=== PATIENT | male | born 1955 | race Caucasian/White ===

== ENCOUNTER 2020-11-02 15:39 | Inpatient (IN) | payer OTHER ==
[~2020-11-02] VITALS: Ht 180.3 cm; Wt 139.1 kg
[2020-11-02] MEDS ORDERED: ONDANSETRON HCL INJ 2MG/ML 2ML 2 MG/ML VIAL IV PRN (16:15)
[2020-11-02 16:43] LABS: BASOPHILS # (AUTO) 0.1 (0.0-0.1); BASOPHILS % 0.5 % (0.0-1.0); EOSINOPHILS # (AUTO) 0.3 (0.0-0.4); EOSINOPHILS % 3.4 % (0.0-6.0); HEMATOCRIT 46.2 % (38.2-49.6); HEMOGLOBIN 14.7 g/dL (14.0-18.0); LYMPHOCYTES # (AUTO) 1.7 (1.0-3.2); LYMPHOCYTES % 17.5 % (18.0-39.1); MEAN CORPUSCULAR HEMOGLOBIN 26.7 pg (28-32); MEAN CORPUSCULAR HGB CONC 31.8 g/dL (31-35); MONOCYTES # (AUTO) 0.6 (0.2-0.8); MONOCYTES % 5.5 % (4.4-11.3); NEUTROPHILS # (AUTO) 7.3 (2.1-6.9); NEUTROPHILS % 72.9 % (38.7-80.0); PLATELET COUNT 333 x10e3/uL (140-360); RED CELL DISTRIBUTION WIDTH 13.5 % (11.7-14.4)
[2020-11-02 17:01] LABS: ALANINE AMINOTRANSFERASE 33 IU/L (0-55); ALBUMIN 3.9 g/dL (3.5-5.0); ALBUMIN/GLOBULIN RATIO 1.1 (0.8-2.0); ALKALINE PHOSPHATASE 73 IU/L (40-150); ANION GAP 14.7 mmol/L (8-16); BLOOD UREA NITROGEN 15 mg/dL (7-26); BUN/CREATININE RATIO 13 (6-25); CALCIUM 9.4 mg/dL (8.4-10.2); CARBON DIOXIDE 26 mmol/L (22-29); CHLORIDE 100 mmol/L (98-107); CREATININE, SERUM 1.13 mg/dL (0.72-1.25); EST GLOMERULAR FILTRATION RATE > 60 ML/MIN (60-); GLUCOSE 201 mg/dL (74-118); POTASSIUM 3.7 mmol/L (3.5-5.1); SODIUM 137 mmol/L (136-145)
[2020-11-02] MEDS ORDERED: LOSARTAN-HCTZ1 EACH PO (17:10)
[2020-11-02] MEDS ORDERED: CYMBALTA30 MG PO (17:10)
[2020-11-02] MEDS ORDERED: MOBIC15 MG PO (17:10)
[2020-11-02] MEDS ORDERED: OMEPRAZOLE40 MG PO (17:10)
[2020-11-02] MEDS ORDERED: ZETIA10 MG PO (17:10)
[2020-11-02] MEDS ORDERED: LEVOTHYROXINE50 MCG PO (17:10)
[2020-11-02] MEDS ORDERED: XIGDUO XR 5 MG1 EAC1 PO (17:10)
[2020-11-02] MEDS ORDERED: FLOMAX0.4 MG PO (17:10)
[2020-11-02] MEDS ORDERED: GABAPENTIN600 MG PO (17:10)
[2020-11-02] MEDS: LEVOFLOXACIN 750MG/D5W 150ML 150 ML IV SCH (17:13)
[2020-11-02] MEDS ORDERED: PIPER-TAZ 3.375 GM 50 ML IV SCH (18:00)
[2020-11-02 20:07] VITALS: BP 106/77
[2020-11-02 20:29] VITALS: BP 106/77
[2020-11-02] MEDS: VANCOMYCIN 1GM/NS 250 ML 250 ML IV SCH (21:55)
[2020-11-02] MEDS: TAMSULOSIN HCL 0.4 MG CAP PO SCH (22:00)
[2020-11-02] MEDS: GABAPENTIN 300 MG CAP PO SCH (22:00)
[2020-11-02] MEDS: EZETIMIBE 10 MG TAB PO SCH (22:00)
[2020-11-02] MEDS ORDERED: SODIUM CHLORIDE 0.9% 250ML 250 ML ONE (22:10)
[2020-11-03] VITALS (8 sets, daily range): BP systolic 103–126; BP diastolic 61–74
[2020-11-03] MEDS ORDERED: POLYETHYLENE GLYCOL 3350 17 GM PACK PO PRN (00:15)
[2020-11-03] MEDS ORDERED: SIMETHICONE 80 MG CHEW PO PRN (00:15)
[2020-11-03] MEDS ORDERED: ONDANSETRON HCL INJ 2MG/ML 2ML 2 MG/ML VIAL IV PRN (00:15)
[2020-11-03] MEDS ORDERED: MELATONIN 5 MG TABLET PO PRN (00:15)
[2020-11-03] MEDS ORDERED: POTASSIUM CHLORIDE 20 MEQ TAB CR PO PRN (00:15)
[2020-11-03] MEDS ORDERED: HYDRALAZINE HCL 20 MG/ML VIAL IV PRN (00:15)
[2020-11-03] MEDS ORDERED: DOCUSATE SODIUM 100 MG CAP PO PRN (00:15)
[2020-11-03] MEDS ORDERED: DEXTROSE 50% SYRINGE 50 ML IV PRN (00:15)
[2020-11-03] MEDS ORDERED: DIPHENHYDRAMINE HCL 25 MG CAP PO PRN (00:15)
[2020-11-03] MEDS ORDERED: ALBUTEROL/IPRATROPIUM 3 ML NEB NEB PRN (00:15)
[2020-11-03] MEDS ORDERED: BENZONATATE 100 MG CAP PO PRN (00:15)
[2020-11-03] MEDS ORDERED: CHLORASEPTIC SPRAY 177 ML BTL MM PRN (00:15)
[2020-11-03] MEDS: ACETAMINOPHEN 325 MG TAB PO PRN ×2 (04:19→22:15)
[2020-11-03] MEDS: LEVOTHYROXINE SODIUM 50 MCG TAB PO SCH (05:43)
[2020-11-03 05:47] LABS: BASOPHILS # (AUTO) 0.1 (0.0-0.1); BASOPHILS % 0.8 % (0.0-1.0); EOSINOPHILS # (AUTO) 0.3 (0.0-0.4); EOSINOPHILS % 3.8 % (0.0-6.0); HEMATOCRIT 43.2 % (38.2-49.6); HEMOGLOBIN 13.6 g/dL (14.0-18.0); LYMPHOCYTES # (AUTO) 1.7 (1.0-3.2); LYMPHOCYTES % 19.8 % (18.0-39.1); MEAN CORPUSCULAR HEMOGLOBIN 26.5 pg (28-32); MEAN CORPUSCULAR HGB CONC 31.5 g/dL (31-35); MONOCYTES # (AUTO) 0.8 (0.2-0.8); MONOCYTES % 8.6 % (4.4-11.3); NEUTROPHILS # (AUTO) 5.8 (2.1-6.9); NEUTROPHILS % 66.7 % (38.7-80.0); PLATELET COUNT 300 x10e3/uL (140-360); RED BLOOD COUNT 5.14 x10e6/uL (4.3-5.7); RED CELL DISTRIBUTION WIDTH 13.3 % (11.7-14.4)
[2020-11-03 06:18] LABS: ALBUMIN 3.3 g/dL (3.5-5.0); ANION GAP 11.7 mmol/L (8-16); CALCIUM 9.1 mg/dL (8.4-10.2); CREATININE, SERUM 1.22 mg/dL (0.72-1.25); POTASSIUM 4.7 mmol/L (3.5-5.1)
[2020-11-03 06:39] LABS: MAGNESIUM 2.1 MG/DL (1.3-2.1); PHOSPHORUS 4.1 MG/DL (2.3-4.7)
[2020-11-03] MEDS ORDERED: PANTOPRAZOLE SOD 40 MG TABEC PO SCH (09:00)
[2020-11-03] MEDS ORDERED: HYDROCHLOROTHIAZIDE 25 MG TAB PO SCH (09:00)
[2020-11-03] MEDS ORDERED: MELOXICAM 7.5 MG TAB PO SCH (09:00)
[2020-11-03] MEDS: VANCOMYCIN 1GM/NS 250 ML 250 ML IV SCH ×2 (09:20→21:14)
[2020-11-03] MEDS: DULOXETINE HCL 30 MG DELAYED RELEASE PO SCH (09:20)
[2020-11-03] MEDS: GABAPENTIN 300 MG CAP PO SCH ×3 (09:20→21:15)
[2020-11-03] MEDS: PANTOPRAZOLE SOD 40 MG TABEC PO SCH (09:20)
[2020-11-03] MEDS: LOSARTAN POTASSIUM 25 MG TAB PO SCH (09:20)
[2020-11-03] MEDS ORDERED: ENOXAPARIN SOD INJ 40 MG/0.4 ML SYR SC SCH (17:00)
[2020-11-03] MEDS: LACTOBACILLUS ACIDOPHILUS CAPSULE PO SCH (17:15)
[2020-11-03] MEDS: LEVOFLOXACIN 750MG/D5W 150ML 150 ML IV SCH (17:15)
[2020-11-03] MEDS: SODIUM CHLORIDE 0.9% 1000ML 1,000 ML IV SCH (18:49)
[2020-11-03] MEDS: TAMSULOSIN HCL 0.4 MG CAP PO SCH (21:15)
[2020-11-03] MEDS: EZETIMIBE 10 MG TAB PO SCH (21:15)
[2020-11-04] VITALS (13 sets, daily range): BP systolic 105–130; BP diastolic 53–79
[2020-11-04 04:59] LABS: BASOPHILS # (AUTO) 0.1 (0.0-0.1); BASOPHILS % 0.6 % (0.0-1.0); EOSINOPHILS # (AUTO) 0.3 (0.0-0.4); EOSINOPHILS % 3.6 % (0.0-6.0); HEMATOCRIT 45.8 % (38.2-49.6); HEMOGLOBIN 14.3 g/dL (14.0-18.0); LYMPHOCYTES # (AUTO) 1.7 (1.0-3.2); LYMPHOCYTES % 20.7 % (18.0-39.1); MEAN CORPUSCULAR HEMOGLOBIN 26.4 pg (28-32); MEAN CORPUSCULAR HGB CONC 31.2 g/dL (31-35); MEAN CORPUSCULAR VOLUME 84.7 fL (81-99); MONOCYTES # (AUTO) 0.6 (0.2-0.8); MONOCYTES % 6.9 % (4.4-11.3); NEUTROPHILS # (AUTO) 5.6 (2.1-6.9); NEUTROPHILS % 67.8 % (38.7-80.0); PLATELET COUNT 329 x10e3/uL (140-360); RED BLOOD COUNT 5.41 x10e6/uL (4.3-5.7); RED CELL DISTRIBUTION WIDTH 13.5 % (11.7-14.4)
[2020-11-04 05:06] LABS: INR 1.02; PROTHROMBIN TIME 13.9 seconds (11.9-14.5)
[2020-11-04 05:27] LABS: ALANINE AMINOTRANSFERASE 31 IU/L (0-55); ALBUMIN 3.4 g/dL (3.5-5.0); ALBUMIN/GLOBULIN RATIO 0.9 (0.8-2.0); ALKALINE PHOSPHATASE 67 IU/L (40-150); ANION GAP 12.6 mmol/L (8-16); BLOOD UREA NITROGEN 13 mg/dL (7-26); BUN/CREATININE RATIO 11 (6-25); CALCIUM 8.9 mg/dL (8.4-10.2); CARBON DIOXIDE 31 mmol/L (22-29); CHLORIDE 102 mmol/L (98-107); CREATININE, SERUM 1.14 mg/dL (0.72-1.25); EST GLOMERULAR FILTRATION RATE > 60 ML/MIN (60-); GLUCOSE 150 mg/dL (74-118); POTASSIUM 4.6 mmol/L (3.5-5.1); SODIUM 141 mmol/L (136-145)
[2020-11-04] MEDS: LEVOTHYROXINE SODIUM 50 MCG TAB PO SCH (05:49)
[2020-11-04] MEDS: ACETAMINOPHEN 325 MG TAB PO PRN (08:32)
[2020-11-04] MEDS: LACTOBACILLUS ACIDOPHILUS CAPSULE PO SCH ×2 (09:27→18:16)
[2020-11-04] MEDS: LOSARTAN POTASSIUM 25 MG TAB PO SCH (09:27)
[2020-11-04] MEDS: PANTOPRAZOLE SOD 40 MG TABEC PO SCH (09:27)
[2020-11-04] MEDS: DULOXETINE HCL 30 MG DELAYED RELEASE PO SCH (09:27)
[2020-11-04] MEDS: GABAPENTIN 300 MG CAP PO SCH ×3 (09:27→20:43)
[2020-11-04] MEDS: SODIUM CHLORIDE 0.9% 1000ML 1,000 ML IV SCH ×2 (09:30→20:43)
[2020-11-04] MEDS: VANCOMYCIN 1GM/NS 250 ML 250 ML IV SCH (10:30)
[2020-11-04 10:52] LABS: CHOL/HDL RATIO 4.6 (3.9-4.7)
[2020-11-04] MEDS ORDERED: CLOPIDOGREL BISULFATE 75 MG TAB PO ONE (12:15)
[2020-11-04] MEDS ORDERED: ONDANSETRON HCL 4 MG ORAL DISINTEGRATING TAB PO PRN (14:00)
[2020-11-04] MEDS ORDERED: MIDAZOLAM HCL 2 MG/2 ML VIAL ONE ×2 (16:07→16:59)
[2020-11-04] MEDS ORDERED: FENTANYL CITRATE/PF 100MCG/2 ML INJ ONE (16:08)
[2020-11-04] MEDS ORDERED: HEPARIN SOD/SOD CHLORIDE 2,000 ML ONE (16:08)
[2020-11-04] MEDS ORDERED: LIDOCAINE HCL 2% LOCAL 20 ML VIAL ONE (16:08)
[2020-11-04] MEDS ORDERED: IOPAMIDOL 300MG/ML 100 ML INFUS..BTL IV ONE (16:09)
[2020-11-04] MEDS ORDERED: SODIUM CHLORIDE 0.9% 1000ML 1,000 ML ONE (16:10)
[2020-11-04] MEDS ORDERED: SODIUM CHLORIDE 0.9% 1000ML 1,000 ML IV SCH (17:45)
[2020-11-04] MEDS ORDERED: ONDANSETRON HCL INJ 2MG/ML 2ML 2 MG/ML VIAL IV PRN (17:45)
[2020-11-04] MEDS ORDERED: MORPHINE SULFATE INJ 4 MG/ML INJ 1ML IV PRN (17:45)
[2020-11-04] MEDS ORDERED: HYDROCODONE/APAP 5MG-325MG TAB PO PRN (17:45)
[2020-11-04] MEDS: LEVOFLOXACIN 750MG/D5W 150ML 150 ML IV SCH (18:16)
[2020-11-04] MEDS: TAMSULOSIN HCL 0.4 MG CAP PO SCH (20:43)
[2020-11-04] MEDS: VANCOMYCIN HCL 1.25 GM in SODIUM CHLORIDE 0.9% 250ML 250 ML IV SCH (20:43)
[2020-11-04] MEDS: EZETIMIBE 10 MG TAB PO SCH (20:43)
[2020-11-04] MEDS ORDERED: ZOLPIDEM TARTRATE 5 MG TAB PO PRN (21:00)
[2020-11-05] VITALS (7 sets, daily range): BP systolic 100–144; BP diastolic 62–80
[2020-11-05] MEDS: ACETAMINOPHEN 325 MG TAB PO PRN (03:28)
[2020-11-05] MEDS: LEVOTHYROXINE SODIUM 50 MCG TAB PO SCH (04:25)
[2020-11-05] MEDS: SODIUM CHLORIDE 0.9% 1000ML 1,000 ML IV SCH ×3 (05:35→21:09)
[2020-11-05 05:49] LABS: BASOPHILS % 0.4 % (0.0-1.0); EOSINOPHILS # (AUTO) 0.3 (0.0-0.4); EOSINOPHILS % 4.2 % (0.0-6.0); HEMATOCRIT 41.4 % (38.2-49.6); HEMOGLOBIN 13.2 g/dL (14.0-18.0); LYMPHOCYTES # (AUTO) 1.5 (1.0-3.2); LYMPHOCYTES % 18.8 % (18.0-39.1); MEAN CORPUSCULAR HEMOGLOBIN 27.2 pg (28-32); MEAN CORPUSCULAR HGB CONC 31.9 g/dL (31-35); MEAN CORPUSCULAR VOLUME 85.4 fL (81-99); MONOCYTES # (AUTO) 0.7 (0.2-0.8); MONOCYTES % 8.5 % (4.4-11.3); NEUTROPHILS # (AUTO) 5.5 (2.1-6.9); NEUTROPHILS % 67.6 % (38.7-80.0); PLATELET COUNT 287 x10e3/uL (140-360); RED BLOOD COUNT 4.85 x10e6/uL (4.3-5.7); RED CELL DISTRIBUTION WIDTH 13.3 % (11.7-14.4)
[2020-11-05 06:12] LABS: ALANINE AMINOTRANSFERASE 26 IU/L (0-55); ALBUMIN 3.1 g/dL (3.5-5.0); ALKALINE PHOSPHATASE 64 IU/L (40-150); ANION GAP 10.2 mmol/L (8-16); BLOOD UREA NITROGEN 11 mg/dL (7-26); BUN/CREATININE RATIO 11 (6-25); CALCIUM 8.3 mg/dL (8.4-10.2); CARBON DIOXIDE 29 mmol/L (22-29); CHLORIDE 104 mmol/L (98-107); CREATININE, SERUM 1.03 mg/dL (0.72-1.25); EST GLOMERULAR FILTRATION RATE > 60 ML/MIN (60-); GLUCOSE 126 mg/dL (74-118); POTASSIUM 4.2 mmol/L (3.5-5.1); SODIUM 139 mmol/L (136-145)
[2020-11-05] MEDS: PANTOPRAZOLE SOD 40 MG TABEC PO SCH (08:30)
[2020-11-05] MEDS: DULOXETINE HCL 30 MG DELAYED RELEASE PO SCH (08:42)
[2020-11-05] MEDS: LOSARTAN POTASSIUM 25 MG TAB PO SCH (08:42)
[2020-11-05] MEDS: GABAPENTIN 300 MG CAP PO SCH ×3 (08:43→21:18)
[2020-11-05] MEDS: LACTOBACILLUS ACIDOPHILUS CAPSULE PO SCH ×2 (08:43→16:16)
[2020-11-05] MEDS: VANCOMYCIN HCL 1.25 GM in SODIUM CHLORIDE 0.9% 250ML 250 ML IV SCH (08:54)
[2020-11-05] MEDS ORDERED: CLOPIDOGREL BISULFATE 75 MG TAB PO SCH (09:00)
[2020-11-05] MEDS ORDERED: FENTANYL CITRATE/PF 100MCG/2 ML INJ ONE (12:42)
[2020-11-05] MEDS ORDERED: LIDOCAINE HCL 2% JELLY 5 ML TUBE ONE (13:54)
[2020-11-05] MEDS ORDERED: SEVOFLURANE INHAL SOLN 250 ML PEN BTL ONE (13:54)
[2020-11-05] MEDS ORDERED: PROPOFOL IV EMULSION 10 MG/ML 20 ML VIAL ONE (13:54)
[2020-11-05] MEDS ORDERED: ONDANSETRON HCL INJ 2MG/ML 2ML 2 MG/ML VIAL ONE (13:54)
[2020-11-05] MEDS ORDERED: LIDOCAINE HCL 2% LOCAL INJ 5 ML SDV VIAL INJ ONE (13:54)
[2020-11-05] MEDS ORDERED: BUPIVACAINE HCL 0.5% INJ 30 ML VIAL INJ ONE (14:08)
[2020-11-05] MEDS ORDERED: NEOSTIGMINE 1 MG/ML 10ML VIAL ONE (14:08)
[2020-11-05] MEDS: ASPIRIN 81 MG ENTERIC COATED PO SCH (15:38)
[2020-11-05] MEDS: MEROPENEM 1GM 100 ML IV SCH ×2 (15:38→21:18)
[2020-11-05] MEDS: TAMSULOSIN HCL 0.4 MG CAP PO SCH (21:17)
[2020-11-05] MEDS: EZETIMIBE 10 MG TAB PO SCH (21:18)
[2020-11-06] VITALS (8 sets, daily range): BP systolic 116–138; BP diastolic 57–79
[2020-11-06] MEDS: MEROPENEM 1GM 100 ML IV SCH ×3 (05:00→22:00)
[2020-11-06] MEDS: LEVOTHYROXINE SODIUM 50 MCG TAB PO SCH (05:05)
[2020-11-06] MEDS: PANTOPRAZOLE SOD 40 MG TABEC PO SCH (08:30)
[2020-11-06] MEDS: ASPIRIN 81 MG ENTERIC COATED PO SCH (09:31)
[2020-11-06] MEDS: LOSARTAN POTASSIUM 25 MG TAB PO SCH (09:32)
[2020-11-06] MEDS: GABAPENTIN 300 MG CAP PO SCH ×3 (09:32→21:12)
[2020-11-06] MEDS: LACTOBACILLUS ACIDOPHILUS CAPSULE PO SCH ×2 (09:32→16:01)
[2020-11-06] MEDS: DULOXETINE HCL 30 MG DELAYED RELEASE PO SCH (09:32)
[2020-11-06] MEDS: SODIUM CHLORIDE 0.9% 1000ML 1,000 ML IV SCH ×2 (11:30→16:52)
[2020-11-06] MEDS ORDERED: DEXTROSE 50% SYRINGE 50 ML IV PRN (12:30)
[2020-11-06] MEDS: INSULIN LISPRO 100 UNIT/1 ML 3ML VIAL SQ SCH ×3 (12:45→21:00)
[2020-11-06] MEDS: TAMSULOSIN HCL 0.4 MG CAP PO SCH (21:12)
[2020-11-06] MEDS: EZETIMIBE 10 MG TAB PO SCH (21:12)
[2020-11-07] VITALS (8 sets, daily range): BP systolic 101–137; BP diastolic 67–86
[2020-11-07] MEDS: MEROPENEM 1GM 100 ML IV SCH ×3 (06:18→21:52)
[2020-11-07] MEDS: LEVOTHYROXINE SODIUM 50 MCG TAB PO SCH (06:18)
[2020-11-07] MEDS: INSULIN LISPRO 100 UNIT/1 ML 3ML VIAL SQ SCH ×4 (07:30→21:50)
[2020-11-07] MEDS: DULOXETINE HCL 30 MG DELAYED RELEASE PO SCH (08:10)
[2020-11-07] MEDS: GABAPENTIN 300 MG CAP PO SCH ×3 (08:10→21:52)
[2020-11-07] MEDS: LOSARTAN POTASSIUM 25 MG TAB PO SCH (08:10)
[2020-11-07] MEDS: LACTOBACILLUS ACIDOPHILUS CAPSULE PO SCH ×2 (08:10→16:58)
[2020-11-07] MEDS: PANTOPRAZOLE SOD 40 MG TABEC PO SCH (08:10)
[2020-11-07] MEDS: ASPIRIN 81 MG ENTERIC COATED PO SCH (08:10)
[2020-11-07] MEDS: TAMSULOSIN HCL 0.4 MG CAP PO SCH (21:52)
[2020-11-07] MEDS: EZETIMIBE 10 MG TAB PO SCH (21:52)
[2020-11-08] VITALS: BP 136/89
[2020-11-08 04:00] VITALS: BP 92/64
[2020-11-08] MEDS: MEROPENEM 1GM 100 ML IV SCH (05:51)
[2020-11-08] MEDS: LEVOTHYROXINE SODIUM 50 MCG TAB PO SCH (05:51)
[2020-11-08 08:07] VITALS: BP 114/80
[2020-11-08 08:14] VITALS: BP 114/80
[2020-11-08] MEDS: PANTOPRAZOLE SOD 40 MG TABEC PO SCH (08:30)
[2020-11-08] MEDS: INSULIN LISPRO 100 UNIT/1 ML 3ML VIAL SQ SCH ×2 (08:30→12:12)
[2020-11-08] MEDS: ASPIRIN 81 MG ENTERIC COATED PO SCH (09:03)
[2020-11-08] MEDS: GABAPENTIN 300 MG CAP PO SCH (09:04)
[2020-11-08] MEDS: DULOXETINE HCL 30 MG DELAYED RELEASE PO SCH (09:04)
[2020-11-08] MEDS: LOSARTAN POTASSIUM 25 MG TAB PO SCH (09:04)
[2020-11-08] MEDS: LACTOBACILLUS ACIDOPHILUS CAPSULE PO SCH (09:04)
[2020-11-08 11:30] VITALS: BP 135/79
[2020-11-08] MEDS ORDERED: MEROPENEM 1GM 100 ML IV ONE (11:45)
[2020-11-08] MEDS ORDERED: ASPIRIN CHEW81 MG PO (12:55)
[2020-11-08] MEDS ORDERED: TYLENOL # 31 EA (12:56)
[2020-11-08] MEDS ORDERED: MEROPENEM 1GRAM 1 GM in SODIUM CHLORIDE 0.9% 100 ML 100 ML IV ONE (14:00)
== END 2020-11-08 14:43 | disposition home or self-care (01) | DRG 264 ==
LOC: ER 17:28 → ERHOLD 17:47 → MED/SURG2 20:07
PROVIDERS: ADMIT Internal Medicine; ATTEND Internal Medicine
PROC: B4101ZZ Fluoroscopy of Abdominal Aorta using Low Osmolar Contrast (ICD-10-PCS; principal; 2020-11-04)
PROC: B41F1ZZ Fluoroscopy of Right Lower Extremity Arteries using Low Osmolar Contrast (ICD-10-PCS; 2020-11-04)
PROC: 02HV33Z Insertion of Infusion Device into Superior Vena Cava, Percutaneous Approach (ICD-10-PCS; 2020-11-04)
PROC: B548ZZA Ultrasonography of Superior Vena Cava, Guidance (ICD-10-PCS; 2020-11-04)
PROC: 0HRMXK3 Replacement of Right Foot Skin with Nonautologous Tissue Substitute, Full Thickness, External Approach (ICD-10-PCS; 2020-11-05)
PROC: 0QBN0ZZ Excision of Right Metatarsal, Open Approach (ICD-10-PCS; 2020-11-05)
DX: E11.51 Type 2 diabetes mellitus with diabetic peripheral angiopathy without gangrene (principal); Z68.41 Body mass index [BMI] 40.0-44.9, adult; M86.8X7 Other osteomyelitis, ankle and foot; Z16.12 Extended spectrum beta lactamase (ESBL) resistance; E11.621 Type 2 diabetes mellitus with foot ulcer; E11.69 Type 2 diabetes mellitus with other specified complication; E66.01 Morbid (severe) obesity due to excess calories; E78.5 Hyperlipidemia, unspecified; I10 Essential (primary) hypertension; Z88.1 Allergy status to other antibiotic agents; Z88.5 Allergy status to narcotic agent; Z88.8 Allergy status to other drugs, medicaments and biological substances; Z79.84 Long term (current) use of oral hypoglycemic drugs; Z87.891 Personal history of nicotine dependence; E03.9 Hypothyroidism, unspecified; E11.42 Type 2 diabetes mellitus with diabetic polyneuropathy; I71.4 Abdominal aortic aneurysm, without rupture; M19.071 Primary osteoarthritis, right ankle and foot; L97.514 Non-pressure chronic ulcer of other part of right foot with necrosis of bone; I70.235 Atherosclerosis of native arteries of right leg with ulceration of other part of foot; B96.20 Unspecified Escherichia coli [E. coli] as the cause of diseases classified elsewhere; Z20.828 Contact with and (suspected) exposure to other viral communicable diseases
CPT/HCPCS: 36247; 36415; 36569; 71045; 74470; 75716; 80053; 80061; 80202; 82948; 83036; 83735; 84100; 84134; 85025; 85610; 85651; 86140; 87040; 87071; 87075; 87186; 87205; 93005; 93306; 93925; 93971; 94660; 99152; 99153; 99251; 99284; C1760; C1769; C1887; J1650; J2001; J2250; J2405; J2710; J3010; J3370; J7030; J7050; Q9967; U0002